=== PATIENT | female | born 1995 | race Two or more races ===

== ENCOUNTER 2024-06-28 16:12 | Emergency (ER) | payer MEDICAID, SELFPAY ==
[2024-06-28 16:13] VITALS: BMI 25.0
[2024-06-28 16:48] VITALS: BP 111/75; PULSE 74; RESP 20; TEMP 36.5; O2SAT 100
--- NOTE | 2024-06-28 17:44 | PD.EDRME ---
Rapid Medical Screening Exam RME Arrival date/time: 06/28/24 16:12 21-year-old female past medical history of gallstones presents department complaining of abdominal pain. Chief Complaint: Abdominal Pain Time Seen by Provider: 06/28/24 17:41 Vital signs: Vital Signs Temperature 97.7 F 06/28/24 16:48 Pulse Rate 74 06/28/24 16:48 Respiratory Rate 20 06/28/24 16:48 Blood Pressure 111/75 06/28/24 16:48 Pulse Oximetry (%) 100 06/28/24 16:48 Oxygen Delivery Method Room Air 06/28/24 16:48 Vital signs reviewed by provider: Yes
--- NOTE | 2024-06-28 17:47 | PD.EDADULT ---
ED General RME/HPI General Chief complaint: Abdominal Pain Stated complaint: HAVING A GALLSTONE ATTACK VOMITING TODAY Time Seen by Provider: 06/28/24 17:41 Arrival date/time: 06/28/24 16:12 CC: Right upper quadrant abdominal pain HPI ongoing for the past 2-1/2 hours. Patient has a history of known gallstones delivered her infant greater than 30 days ago. Does not breast-feed, has nausea without any vomiting. Pain is an 8 to a 10 on a 10 scale. Currently patient denies fever headache. States the pain radiates up into the left shoulder. RME / HPI RME / HPI narrative: 06/28/24 16:12 21-year-old female past medical history of gallstones presents department complaining of abdominal pain. Related Data Home Medications ?Medication ?Instructions ?Recorded ?Confirmed prenat.vits,bre,[id number] 1 tab PO DAILY 02/11/24 02/11/24 Previous Rx's ?Medication ?Instructions ?Recorded meloxicam 7.5 mg tablet 7.5 mg PO QDAY #10 tabs 06/28/24 ondansetron 4 mg disintegrating 4 mg PO Q8H #10 tabs 06/28/24 tablet Allergies Allergy/AdvReac Type Severity Reaction Status Date / Time Penicillins Allergy Severe Anaphylaxis Verified 06/28/24 16:15 Review of Systems Review of Systems Narrative Review of Systems: GEN: No fever, no chills, no weight loss EYES: No discharge, no visual changes, no pain HEENT: No ear pain, no congestion, no sore throat PULM: No shortness of breath, no cough, no congestion CV: No chest pain, no dyspnea on exertion, no palpitations GI: No nausea, no vomiting, no diarrhea, + pain, no constipation : No frequency, no urgency, no dysuria MUSC/SKEL: No joint pain, no back pain SKIN: No rash PSYCH: No hallucinations, no depression HEME/LYMPH: No easy bleeding or bruising tendencies NEURO: No weakness, no headache Past Medical History Past Medical History NEUROLOGIC: Negative Neurological Disorders or Seizures CARDIAC: Positive Cardiac Disorders; Negative Congestive Heart Failure RESPIRATORY: Positive Asthma; Negative Chronic Obstructive Pulmonary Disease (COPD) GASTROINTESTINAL: Positive Gall Bladder Disease (Gallstones); Negative Gastrointestinal Disorders GENITOURINARY: Positive Genitourinary Disorders; Negative Renal Disease MUSCULOSKELETAL: Negative Musculoskeletal Disorders ENDOCRINE: Negative Endocrine Disorders, Diabetes Mellitus Type 1 or Diabetes Mellitus Type 2 HEMATOLOGIC: Negative Blood Disorders OTHER HISTORY: Negative Hospitalization, Falls or Anesthesia Reactions Surgical History SURGICAL: Positive Oral Surgery Social History SMOKING STATUS: Never smoker SUBSTANCE USE: does not use ED Exam Narrative Physical exam: [General: In moderate discomfort but not in any acute distress Head normocephalic HEENT: Eyes pupils are PERRLA EOMs are intact all other subsystems of HEENT are within acceptable limits Neck is supple nontender Chest equal chest rise nontender to palpation Respiratory: Clear to auscultation no wheezes crackles or rubs CV: Rate rhythm is regular no murmurs rubs or clicks Abdomen: Reflexive guarding with palpation of the right upper quadrant and epigastric no left upper quadrant or lower quadrant abdominal pain with palpation. Back: No CVA tenderness no spinous process tenderness from cervical spine thoracic and lumbar spine Skin: Intact no petechiae rash induration ulceration or crepitus Extremities: Moving all extremity against resistance cap refill less than 2 seconds neurosensory intact Neuro: Awake alert oriented x3 Glascow coma 15 no focal deficits] Course Quality Measures none Orders Category Date Time Status US gall bladder Stat Exams 06/28/24 17:49 Completed CBC Stat Lab 06/28/24 18:00 Completed CMP [Comprehensive Metabolic Panel] Stat Lab 06/28/24 18:00 Completed HCG,Qualitative Serum Stat Lab 06/28/24 18:00 Completed Lipase Stat Lab 06/28/24 18:00 Completed Lipid Panel Stat Lab 06/28/24 18:00 Completed Urinalysis, C/S if Indicated Stat Lab 06/28/24 17:53 Completed Ketorolac Inj [Toradol Inj] Med 06/28/24 17:43 Discontinued 30 mg IM X1 ONE oxyCODONE/APAP 5/325 [Percocet 5/325] Med 06/28/24 18:46 Discontinued 1 tab PO X1 ONE Vital Signs Vital signs: Vital Signs Temperature 97.7 F 06/28/24 16:48 Pulse Rate 74 06/28/24 16:48 Respiratory Rate 20 06/28/24 16:48 Blood Pressure 111/75 06/28/24 16:48 Pulse Oximetry (%) 100 06/28/24 16:48 Oxygen Delivery Method Room Air 06/28/24 16:48 [facility] Patient data External records reviewed:: [facility] previous records Clinical information provided by:: patient Social determinants that could affect healthcare access:: none Patient has the following chronic illnesses:: Cholelithiasis How is presenting disease/condition affected by chronic disease/condition?: exacerbated by Evaluation data The following diagnostics were reviewed and interpreted by me:: lab results and radiology exam(s) Lab and/or radiology exams considered but not ordered:: CBC shows no leukocytosis anemia thrombocytopenia CMP shows no acute electrolyte imbalances renal impairment there is a mild elevation in ALT AST, but no T. bili elevation. Lipase is 53 Urine is negative for urinary tract infection Interpretation Summary: Cholelithiasis without cholecystitis Medications Medications considered but not ordered:: None Medication administrations:: Medication Administration History Discontinued Medications Ketorolac Tromethamine (Ketorolac Inj 60 Mg/2 Ml Vial) 30 mg IM X1 ONE Stop: 06/28/24 17:44 Last Admin: 06/28/24 18:17 Dose: 30 mg Documented By: [facility] Comments: scanner didn't work Oxycodone/Acetaminophen (Oxycodone/Apap 5/325 Tablet) 1 tab PO X1 ONE Stop: 06/28/24 18:47 Last Admin: 06/28/24 18:52 Dose: 1 tab Documented By: [facility] None Consultations Consultation(s) initiated? (list below): No Diagnosis Differential Diagnosis ED Complaint MDM: Cholelithiasis cholecystitis choledocholithiasis Most likely diagnosis given after review of the tests above:: Cholelithiasis Admission Indicated Admission indicated?: not indicated Explain why admission is indicated or not indicated:: Stable for outpatient follow-up Admission Request Was there a request for admission?: No Disposition Plan Disposition Plan: Discharge Discharge Attestation Discharge Attestation: The patient and all family members were given an opportunity to ask questions and understood the discharge instructions. Discharge instructions specifically effects, indications for sooner follow up or return to the emergency department, and the expected course of current diagnosis. Patient condition: Stable Medical Decision Making Differential Diagnosis Differential Diagnosis: Cholelithiasis cholecystitis choledocholithiasis Lab Data 06/28/24 18:00 06/28/24 18:00 Labs: Lab Results 06/28/24 06/28/24 Range/Units 17:53 18:00 WBC 13.1 H (3.6-11.0) Thou/mm3 RBC 4.42 (4.00-5.20) Miln/mm3 Hgb 13.1 (12.0-16.0) g/dL Hct 37.5 (36.0-46.0) % MCV 85 (80-100) fL MCH 29.6 (25.0-35.0) pg MCHC 34.9 (31.0-37.0) g/dl RDW Std Deviation 38.5 (36.4-46.3) fL Plt Count 262 (140-440) Thou/mm3 Neut % (Auto) 82 H (37-80) % Lymph % (Auto) 12 (10-50) % [place] % (Auto) 5 (0-12) % Eos % (Auto) 0 (0-10) % Baso % (Auto) 0 (0-2.5) % Neut # (Auto) 10.8 H (1.8-7.7) Thou/mm3 Lymph # (Auto) 1.5 (1.0-4.8) Thou/mm3 [place] # (Auto) 0.7 (0.0-0.8) Thou/mm3 Eos # (Auto) 0.0 (0.0-0.5) Thou/mm3 Baso # (Auto) 0.0 (0.0-0.2) Thou/mm3 Immature Gran # (Auto) 0.04 H (0.00-0.00) Thou/mm3 Absolute Nucleated RBC 0.00 (0.00-0.00) Thou/mm3 Immature Gran % 0 (0-0) % Nucleated RBC % 0 (0) /100 WBC Sodium 140 (136-145) mMol/L Potassium 3.6 (3.4-5.1) mMol/L Chloride 105 (98-107) mMol/L Carbon Dioxide 25.6 (20.0-31.0) mMol/L Anion Gap 9 (7-16) BUN 17 (9-23) mg/dL Creatinine 0.7 (0.6-1.3) mg/dL Estim Creat Clear Calc 107.7 (>60) mL/min eGFR > 60 (60 - ) See Note BUN/Creatinine Ratio 24 H (12-20) Ratio Glucose 119 H (74-106) mg/dL Calculated Osmolality 281 (275-295) Calcium 10.4 (8.3-10.6) mg/dL Corrected Calcium 10.4 H (8.5-10.1) mg/dL Total Bilirubin 0.7 (0.3-1.2) mg/dL AST 233 H (0-34) U/L ALT 160 H (10-49) U/L Alkaline Phosphatase 114 (46-116) U/L Total Protein 7.6 (5.7-8.2) gm/dL Albumin 4.9 (3.5-5.0) gm/dL Globulin 2.7 (2.3-3.5) gm/dL Albumin/Globulin Ratio 1.8 (1.2-2.2) Triglycerides 81 (30-150) mg/dL Cholesterol 162 (132-200) mg/dL LDL Cholesterol, Calc 83 (0-130) mg/dL HDL Cholesterol 63 H (40-60) mg/dL Cholesterol/HDL Ratio 2.6 L (3.7-5.6) RATIO Lipase 58 H (12-53) U/L HCG, Qual Negative Ur Collection Type Clean Catch Urine Color Yellow (Lt Yel-Yel) Urine Clarity Clear (Clear/Hazy) Urine pH 8.5 H (5.0-7.0) Ur Specific [place] 1.032 (1.001-1.035) Urine Protein 1+ A (Neg - Trace) Urine Glucose (UA) Negative (Negative) Urine Ketones Negative (Negative) Urine Blood Negative (Negative) Urine Nitrite Negative (Negative) Urine Bilirubin Negative (Negative) Urine Urobilinogen (Auto) 2.0 (0.0-1.0) mg/dL Ur Leukocyte Esterase Negative (Negative) Urine RBC 5 H (0-3) /hpf Urine WBC 4 (0-5) /hpf Ur Squamous Epith Cells 9 H (0-5) /hpf Urine Bacteria None (None) Ur Culture Indicated? Not Indicated Discharge Plan Plan Patient Disposition: HOME (Self Care) Patient condition on transfer: Stable Prescriptions/Referrals Prescriptions/Med Rec: New ondansetron 4 mg tablet,disintegrating 4 mg PO Q8H Qty: 10 0RF meloxicam 7.5 mg tablet 7.5 mg PO QDAY Qty: 10 0RF No Action Vitamin Tablet 1 tab PO DAILY Referrals: Mauricio Shafer MD [Primary Care Provider] - In 1 week Problem List Clinical Impression: Cholelithiasis Patient/Caregiver Discharge Instructions Other Activity Instructions:: Stick to a bland diet, take the medications as needed for pain if there is worsening of symptoms spite of these interventions follow-up with your primary care provider. Education Materials: Treating Gallstones, ED Diet, [place] (Adult) Print Language: Urdu Stand Alone Forms: Yvonne Award Info., Work/School Release, Patient Portal Info Letter PA/FORESTRY CONTRACTOR Supervising Physician PA/FORESTRY CONTRACTOR Supervising Physician: Ellis Fabian ENP
--- NOTE | 2024-06-28 17:49 | XR_ITS ---
Examination: Abdomen sonogram, Limited Date and time of exam: June 28, 2024 1803 hrs. Indications: Right upper abdominal pain with vomiting beginning 2 hours ago Technique: Real-time goodson scale transabdominal sonographic images of the upper abdomen obtained. Findings: Multiple gallstones Gallbladder wall 0.3 cm no edema Common bile duct 0.2 cm Pancreatic head 2.1 cm Liver 16.7 cm smooth contour no focal liver lesions Normal hepatopedal portal venous flow Patent IVC Impression: Cholelithiasis Negative for cholecystitis Mild hepatomegaly
[2024-06-28 18:10] LABS: Collection Type, Urine Clean Catch
[2024-06-28 18:12] LABS: Basophils % (Auto) 0 % (0-2.5); Eosinophils % (Auto) 0 % (0-10); Hematocrit 37.5 % (36.0-46.0); Hemoglobin 13.1 g/dL (12.0-16.0); Immature Granulocytes % (Auto) 0 % (0-0); Immature Granulocytes Auto 0.04 Thou/mm3 (0.00-0.00); Lymphocytes # (Auto) 1.5 Thou/mm3 (1.0-4.8); Lymphocytes % (Auto) 12 % (10-50); Mean Corpuscular HGB Conc 34.9 g/dl (31.0-37.0); Mean Corpuscular Hemoglobin 29.6 pg (25.0-35.0); Mean Corpuscular Volume 85 fL (80-100); Monocytes # (Auto) 0.7 Thou/mm3 (0.0-0.8); Monocytes % (Auto) 5 % (0-12); Neutrophils # (Auto) 10.8 Thou/mm3 (1.8-7.7); Neutrophils % (Auto) 82 % (37-80); Nucleated Red Blood Cell % 0 /100 WBC (0); Platelet Count 262 Thou/mm3 (140-440); RDW Standard Deviation 38.5 fL (36.4-46.3); Red Blood Count 4.42 Miln/mm3 (4.00-5.20); White Blood Count 13.1 Thou/mm3 (3.6-11.0)
[2024-06-28] MEDS: KETOROLAC INJ 60 MG/2 ML VIAL 30 MG IM (18:17)
[2024-06-28 18:34] LABS: HCG,Qualitative Serum Negative
[2024-06-28 18:38] LABS: Bilirubin,Urine Negative (Negative); Blood,Urine Negative (Negative); Clarity,Urine Clear (Clear/Hazy); Color,Urine Yellow (Lt Yel-Yel); Culture Indicated,Urine Not Indicated; Glucose, Urine Negative (Negative); Ketones,Urine Negative (Negative); Leukocyte Esterase,Urine Negative (Negative); Nitrite,Urine Negative (Negative); PH,Urine 8.5 (5.0-7.0); Protein,Urine 1+ (Neg - Trace); RBC,Urine 5 /hpf (0-3); Specific Gravity,Urine 1.032 (1.001-1.035); Squamous Epithelial Cell,Urine 9 /hpf (0-5); WBC,Urine 4 /hpf (0-5)
[2024-06-28 18:39] LABS: Alanine Aminotransferase 160 U/L (10-49); Albumin, Serum 4.9 gm/dL (3.5-5.0); Albumin/Globulin Ratio 1.8 (1.2-2.2); Alkaline Phosphatase 114 U/L (46-116); Anion Gap 9 (7-16); Aspartate Amino Transferase 233 U/L (0-34); BUN/Creatinine Ratio 24 Ratio (12-20); Bilirubin,Total 0.7 mg/dL (0.3-1.2); Blood Urea Nitrogen 17 mg/dL (9-23); Calcium 10.4 mg/dL (8.3-10.6); Calcium (Corrected) 10.4 mg/dL (8.5-10.1); Carbon Dioxide 25.6 mMol/L (20.0-31.0); Chloride 105 mMol/L (98-107); Creatinine (Component) 0.7 mg/dL (0.6-1.3); Estimated Creatinine Clearance 107.7 mL/min (>60); Globulin 2.7 gm/dL (2.3-3.5); Glucose 119 mg/dL (74-106); Lipase 58 U/L (12-53); Osmolality,Calculated 281 (275-295); Potassium 3.6 mMol/L (3.4-5.1); Sodium 140 mMol/L (136-145); Total Protein 7.6 gm/dL (5.7-8.2); eGFR > 60 See Note
[2024-06-28] MEDS: oxyCODONE/APAP 5/325 TABLET 1 TAB PO (18:52)
[2024-06-28 19:48] LABS: Cholesterol 162 mg/dL (132-200); HDL Cholesterol 63 mg/dL (40-60); LDL Cholesterol,Calculated 83 mg/dL (0-130); Triglycerides 81 mg/dL (30-150)
[2024-06-28 19:49] LABS: Cardiac Risk Estimate 2.6 RATIO (3.7-5.6)
[2024-06-28 19:57] VITALS: BP 116/72; PULSE 70; RESP 18; TEMP 36.7; O2SAT 98
== END 2024-06-28 19:58 | disposition home or self-care (01) ==
PROVIDERS: Emergency Provider Emergency Medicine; PCP Internal Medicine
DX: K80.20 Calculus of gallbladder without cholecystitis without obstruction (principal)
CPT/HCPCS: 36415; 76705; 80053; 80061; 81001; 83690; 84703; 85025; 96372; 99284; J1885; A9270

== ENCOUNTER 2024-06-29 20:14 | Inpatient (IN) | payer MEDICAID, SELFPAY ==
[2024-06-29 20:15] VITALS: BMI 23.5
[2024-06-29 20:37] VITALS: BP 115/67; PULSE 75; RESP 22; TEMP 36.6; O2SAT 98
--- NOTE | 2024-06-29 20:54 | PD.EDRME ---
Rapid Medical Screening Exam RME Arrival date/time: 06/29/24 20:14 29-year-old female past medical history of gallstones presents emergency department complaining of epigastric pain since yesterday. Chief Complaint: Abdominal Pain Time Seen by Provider: 06/29/24 20:43 Vital signs: Vital Signs Temperature 98 F 06/29/24 20:37 Pulse Rate 75 06/29/24 20:37 Respiratory Rate 22 H 06/29/24 20:37 Blood Pressure 115/67 06/29/24 20:37 Pulse Oximetry (%) 98 06/29/24 20:37 Oxygen Delivery Method Room Air 06/29/24 20:37 Vital signs reviewed by provider: Yes
--- NOTE | 2024-06-29 20:58 | XR_ITS ---
Examination: Abdomen sonogram, Limited Date and time of exam: June 29, 2024 at 2110 hrs. Indications: Epigastric pain with nausea beginning 2 days ago Technique: Real-time goodson scale transabdominal sonographic images of the upper abdomen obtained. Findings: Multiple gallstones, the largest 21 mm Gallbladder sludge Gallbladder wall 0.2 cm Common bile duct 0.3 cm Pancreatic head 2.4 cm Liver 17.6 cm fatty infiltration smooth contour no focal liver lesions Normal hepatopedal portal venous flow Patent IVC Impression: Cholelithiasis, negative for cholecystitis Hepatomegaly fatty liver
[2024-06-29] MEDS: KETOROLAC INJ 60 MG/2 ML VIAL 30 MG IM (21:01)
[2024-06-29] MEDS: MG HYD/AL HYD/SIME (Maalox Reg) SUSP 30 ML UDC PO (21:02)
[2024-06-29 21:10] LABS: Basophils % (Auto) 0 % (0-2.5); Eosinophils % (Auto) 1 % (0-10); Hematocrit 39.1 % (36.0-46.0); Hemoglobin 13.3 g/dL (12.0-16.0); Immature Granulocytes % (Auto) 0 % (0-0); Lymphocytes # (Auto) 1.6 Thou/mm3 (1.0-4.8); Lymphocytes % (Auto) 29 % (10-50); Mean Corpuscular Hemoglobin 29.1 pg (25.0-35.0); Mean Corpuscular Volume 86 fL (80-100); Monocytes # (Auto) 0.3 Thou/mm3 (0.0-0.8); Monocytes % (Auto) 6 % (0-12); Neutrophils # (Auto) 3.6 Thou/mm3 (1.8-7.7); Neutrophils % (Auto) 64 % (37-80); Nucleated Red Blood Cell % 0 /100 WBC (0); Platelet Count 288 Thou/mm3 (140-440); RDW Standard Deviation 39.4 fL (36.4-46.3); Red Blood Count 4.57 Miln/mm3 (4.00-5.20); White Blood Count 5.6 Thou/mm3 (3.6-11.0)
[2024-06-29 21:25] LABS: Collection Type, Urine Clean Catch
[2024-06-29 21:32] LABS: Alanine Aminotransferase 344 U/L (10-49); Albumin/Globulin Ratio 1.8 (1.2-2.2); Alkaline Phosphatase 226 U/L (46-116); Anion Gap 8 (7-16); Aspartate Amino Transferase 324 U/L (0-34); BUN/Creatinine Ratio 16 Ratio (12-20); Bilirubin,Total 1.9 mg/dL (0.3-1.2); Blood Urea Nitrogen 13 mg/dL (9-23); Calcium 10.6 mg/dL (8.3-10.6); Calcium (Corrected) 10.6 mg/dL (8.5-10.1); Carbon Dioxide 26.2 mMol/L (20.0-31.0); Chloride 107 mMol/L (98-107); Creatinine (Component) 0.8 mg/dL (0.6-1.3); Estimated Creatinine Clearance 101.8 mL/min (>60); Globulin 2.8 gm/dL (2.3-3.5); Glucose 102 mg/dL (74-106); Lipase 50 U/L (12-53); Osmolality,Calculated 281 (275-295); Potassium 3.8 mMol/L (3.4-5.1); Sodium 141 mMol/L (136-145); Total Protein 7.8 gm/dL (5.7-8.2); eGFR > 60 See Note
[2024-06-29 21:35] LABS: Bilirubin,Urine Negative (Negative); Blood,Urine Negative (Negative); Clarity,Urine Clear (Clear/Hazy); Color,Urine Yellow (Lt Yel-Yel); Culture Indicated,Urine Not Indicated; Glucose, Urine Negative (Negative); Ketones,Urine Negative (Negative); Leukocyte Esterase,Urine Negative (Negative); Nitrite,Urine Negative (Negative); Protein,Urine Trace (Neg - Trace); RBC,Urine 2 /hpf (0-3); Specific Gravity,Urine 1.019 (1.001-1.035); Squamous Epithelial Cell,Urine 3 /hpf (0-5); WBC,Urine 4 /hpf (0-5)
[2024-06-29 21:52] LABS: HCG,Qualitative Serum Negative
--- NOTE | 2024-06-29 22:17 | EDNOTE_ITS ---
ED Abdominal Pain RME/HPI General Chief Complaint: Abdominal Pain Stated complaint: GALLBLADDER PAIN Time seen by provider: 06/29/24 20:43 Arrival date/time: 06/29/24 20:14 29-year-old female past medical history of gallstones and recently gave approximately 2 months ago presents emergency department complaining of epigastric pain since yesterday. Patient reports was seen in ER yesterday and discharged home. Patient reports pain has worsened which prompted return to emergency department. Source: patient and family Mode of arrival: ambulatory Limitations: no limitations RME / HPI RME / HPI narrative: 06/29/24 20:14 29-year-old female past medical history of gallstones presents emergency department complaining of epigastric pain since yesterday. Related Data Home Medications ?Medication ?Instructions ?Recorded ?Confirmed prenat.vits,bre,[id number] 1 tab PO DAILY 02/11/24 02/11/24 Previous Rx's ?Medication ?Instructions ?Recorded meloxicam 7.5 mg tablet 7.5 mg PO QDAY #10 tabs 06/28/24 ondansetron 4 mg disintegrating 4 mg PO Q8H #10 tabs 06/28/24 tablet Allergies Allergy/AdvReac Type Severity Reaction Status Date / Time Penicillins Allergy Severe Anaphylaxis Verified 06/29/24 20:15 Review of Systems Review of Systems Systems Reviewed: All systems reviewed, normal except as documented Constitutional Constitutional: Reports system reviewed and no additional complaints, except as documented, Denies body ache(s), Denies chills and Denies fever(s) Eyes Eyes: Reports system reviewed and no additional complaints, except as documented and Denies change in vision ENT Ears, Nose, Mouth, and Throat: Reports system reviewed and no additional complaints, except as documented, Denies disequilibrium, Denies dizziness, Denies sore throat and Denies vertigo Cardiovascular Cardiovascular: Reports system reviewed and no additional complaints, except as documented, Denies chest pain and Denies dyspnea Respiratory Respiratory: Reports system reviewed and no additional complaints, except as documented, Denies chest congestion, Denies cough and Denies dyspnea Gastrointestinal Gastrointestinal: Reports system reviewed and no additional complaints, except as documented, Reports abdominal pain, Denies nausea and Denies vomiting Musculoskeletal Musculoskeletal: Reports system reviewed and no additional complaints, except as documented, Denies abnormal gait and Denies arthralgias Integumentary/Breasts Skin/Breast: Reports system reviewed and no additional complaints, except as documented, Denies erythema, Denies rash and Denies wounds Neurologic Neurologic: Reports system reviewed and no additional complaints, except as documented, Denies abnormal gait, Denies disequilibrium, Denies dizziness and Denies vertigo Past Medical History Past Medical History NEUROLOGIC: Negative Neurological Disorders or Seizures CARDIAC: Positive Cardiac Disorders; Negative Congestive Heart Failure RESPIRATORY: Positive Asthma; Negative Chronic Obstructive Pulmonary Disease (COPD) GASTROINTESTINAL: Positive Gall Bladder Disease; Negative Gastrointestinal Disorders GENITOURINARY: Positive Genitourinary Disorders; Negative Renal Disease MUSCULOSKELETAL: Negative Musculoskeletal Disorders ENDOCRINE: Negative Endocrine Disorders, Diabetes Mellitus Type 1 or Diabetes Mellitus Type 2 HEMATOLOGIC: Negative Blood Disorders OTHER HISTORY: Negative Hospitalization, Falls or Anesthesia Reactions Surgical History SURGICAL: Positive Oral Surgery Social History SMOKING STATUS: Never smoker SUBSTANCE USE: does not use ED Exam General Limitations: Present no limitations General appearance: Present alert and in no apparent distress Head Head exam: Present atraumatic Eye Eye exam: Present normal appearance, PERRL and EOMI ENT ENT exam: Present normal exam, normal oropharynx and mucous membranes moist Neck Neck exam: Present normal inspection, full ROM and trachea midline Chest Chest inspection: Present normal inspection and symmetric chest wall rise Respiratory Respiratory exam: Present normal lung sounds bilaterally Cardiovascular Cardiovascular exam: Present regular rate, normal rhythm and normal heart sounds Abdominal Exam Abdominal exam: Present soft, tenderness and normal bowel sounds Abdominal tenderness: Present RUQ Extremities Exam Extremities exam: Present normal inspection and full ROM Back Exam Back exam: Present normal inspection and full ROM Neurological Exam Neurological exam: Present alert, oriented X3 and CN II-XII intact Psychiatric Psychiatric exam: Present normal affect and normal mood Skin Skin exam: Present warm, dry, intact and normal color Course Quality Measures none Orders Category Date Time Status COVID-19 Screening Questionnaire NOW Care 06/29/24 22:16 Ordered Decision to Admit X1 Care 06/29/24 22:16 Ordered Insert IV NOW Care 06/29/24 22:16 Ordered US gall bladder Stat Exams 06/29/24 20:58 Completed CBC Stat Lab 06/29/24 21:00 Completed CMP [Comprehensive Metabolic Panel] Stat Lab 06/29/24 21:00 Completed HCG,Qualitative Serum Stat Lab 06/29/24 21:00 Completed Lipase Stat Lab 06/29/24 21:00 Completed Urinalysis, C/S if Indicated Stat Lab 06/29/24 21:18 Completed Ketorolac Inj [Toradol Inj] Med 06/29/24 20:53 Discontinued 30 mg IM X1 ONE Morphine Inj Med 06/29/24 22:16 Once 4 mg IVP X1 ONE Ondansetron Inj [Zofran Inj] Med 06/29/24 22:16 Once 4 mg IV X1 ONE mg Hyd/Al Hyd/Mark Susp [Maalox Susp] Med 06/29/24 20:53 Discontinued 30 ml PO X1 ONE Vital Signs Vital signs: Vital Signs Temperature 98 F 06/29/24 20:37 Pulse Rate 75 06/29/24 20:37 Respiratory Rate 22 H 06/29/24 20:37 Blood Pressure 115/67 06/29/24 20:37 Pulse Oximetry (%) 98 06/29/24 20:37 Oxygen Delivery Method Room Air 06/29/24 20:37 98% room air within normal limits Abdominal Pain MDM MDM Narrative MDM Narrative:: 29-year-old female past medical history of gallstones and recently gave approximately 2 months ago presents emergency department complaining of epigastric pain since yesterday. Patient reports was seen in ER yesterday and discharged home. Patient reports pain has worsened which prompted return to emergency department. CBC was unremarkable for any leukocytosis. CMP remarkable for elevated LFTs which are trending upwards compared to yesterday's labs. Ultrasound gallbladder findings cholelithiasis negative for cholecystitis with common bile duct measuring 0.[address] Patrick on-call general surgeon consulted and agrees to admit patient. Patient stable at time of admission. Patient data External records reviewed:: [facility] previous records Clinical information provided by:: patient Social determinants that could affect healthcare access:: none Patient has the following chronic illnesses:: See chart How is presenting disease/condition affected by chronic disease/condition?: uneffected by Evaluation data The following diagnostics were reviewed and interpreted by me:: lab results and radiology exam(s) Lab and/or radiology exams considered but not ordered:: Ordered Interpretation Summary: Interpreted by me Medications / Prescriptions Medications or Prescriptions considered but not ordered:: Ordered Medication administrations:: Medication Administration History Discontinued Medications Al Hydrox/Mg Hydrox/Simethicone (Mg Hyd/Al Hyd/Mark (Maalox Reg) Susp 30 Ml Udc) 30 ml PO X1 ONE Stop: 06/29/24 20:54 Last Admin: 06/29/24 21:02 Dose: 30 ml Documented By: SF Ketorolac Tromethamine (Ketorolac Inj 60 Mg/2 Ml Vial) 30 mg IM X1 ONE Stop: 06/29/24 20:54 Last Admin: 06/29/24 21:01 Dose: 30 mg Documented By: SF Given Consultations Consultation(s) initiated? (list below): Yes Consultation #1 (Physician, Specialty, Details): Dr. Griffith Diagnosis Differential diagnosis abdominal pain: acute appendicitis, calculus of kidney, diverticulitis and pancreatitis Most likely diagnosis given after review of the tests above:: Cholelithiasis Admission Indicated Admission indicated?: indicated Admission Request Was there a request for admission?: Yes Admission Attestation Admission request attestation: Discussed case with [Dr. Griffith] from Hospitalist service regarding admission. Discussed patients ED course, exam findings, labs, and radiology results. Dr. Griffith [agrees] to accept the patient for admission. Disposition Plan Disposition Plan: Admit Discharge Plan Plan Patient Disposition: Admit Acute Care w/in Hospital Disposition Comment: Stable Prescriptions/Referrals Prescriptions/Med Rec: No Action Vitamin Tablet 1 tab PO DAILY ondansetron 4 mg tablet,disintegrating 4 mg PO Q8H Qty: 10 0RF meloxicam 7.5 mg tablet 7.5 mg PO QDAY Qty: 10 0RF Referrals: No Primary/Family,Physician [Primary Care Provider] - In 1 week Problem List Clinical Impression: Cholelithiasis Patient/Caregiver Discharge Instructions Print Language: Yoruba Stand Alone Forms: Yvonne Award Info., Patient Portal Info Letter PA/SEXTON HELPER Supervising Physician PA/SEXTON HELPER Supervising Physician: Dr. Fallon
[2024-06-29] MEDS: MORPHINE SULF INJ 10 MG/ML VIAL 4 MG IVP (22:33)
[2024-06-29] MEDS: ONDANSETRON INJ 2 MG/ML INJ 2 ML 4 MG IV (22:35)
[2024-06-29] MEDS: SODIUM CHLORIDE 0.9% 1000 ML 1,000 ML 125 ML IV (22:37)
[2024-06-29 23:29] VITALS: BMI 24.7
--- NOTE | 2024-06-29 23:58 | PC.NURSE ---
Pt came in from ER, alert and oriented, ambulatory stedy on her feet, no C/O of pain at this time. Significant others at bedside.
[2024-06-30] VITALS (15 sets, daily range): BP systolic 94–134; BP diastolic 52–88; PULSE 60–75; RESP 13–20; TEMP 36.1–36.8; O2SAT 95–100
--- NOTE | 2024-06-30 | XR_ITS ---
MRI abdomen, without contrast. MRCP Date and time of exam: June 30, 2024 at 10:11 AM Indications: 2 months, presenting to the emergency room yesterday with epigastric pain, gallbladder sonogram June 29, 2024 cholelithiasis Technique: Multiple axial and coronal images of the abdomen have been obtained with the Siemens 1.5T MRI scanner. Images obtained included T1 weighted transverse images, T2-weighted transverse images, T2-weighted transverse images fat-suppressed, T2 weighted haste fat suppressed transverse images, T1 weighted images, in and out of phase images, T2-weighted coronal images, breath hold, T2 weighted haze coronal images as well as T2 weighted coronal thick slab images, MRCP. Findings: Mild intrahepatic biliary tract dilatation Multiple gallstones Gallbladder wall does not appear thickened Common bile duct 5 cm No common hepatic or common bile duct stones No peripancreatic edema Spleen is not enlarged No hydronephrosis Aorta normal size No ascites Impression: Cholelithiasis, negative for cholecystitis No common hepatic or common bile duct stones Negative for pancreatitis
--- NOTE | 2024-06-30 04:00 | PC.NURSE ---
Pt no C/o of pain at this time.
[2024-06-30 05:56] LABS: Basophils % (Auto) 0 % (0-2.5); Eosinophils # (Auto) 0.1 Thou/mm3 (0.0-0.5); Eosinophils % (Auto) 2 % (0-10); Hematocrit 33.8 % (36.0-46.0); Hemoglobin 11.3 g/dL (12.0-16.0); Immature Granulocytes % (Auto) 0 % (0-0); Immature Granulocytes Auto 0.01 Thou/mm3 (0.00-0.00); Lymphocytes # (Auto) 1.6 Thou/mm3 (1.0-4.8); Lymphocytes % (Auto) 41 % (10-50); Mean Corpuscular HGB Conc 33.4 g/dl (31.0-37.0); Mean Corpuscular Volume 87 fL (80-100); Monocytes # (Auto) 0.4 Thou/mm3 (0.0-0.8); Monocytes % (Auto) 10 % (0-12); Neutrophils # (Auto) 1.8 Thou/mm3 (1.8-7.7); Neutrophils % (Auto) 47 % (37-80); Nucleated Red Blood Cell % 0 /100 WBC (0); Platelet Count 152 Thou/mm3 (140-440); RDW Standard Deviation 40.2 fL (36.4-46.3); White Blood Count 3.9 Thou/mm3 (3.6-11.0)
[2024-06-30 06:15] LABS: Partial Thromboplastin Time 20.8 Seconds (22.0-36.0); Prothrombin Time 11.3 Seconds (9.0-12.2)
[2024-06-30 06:56] LABS: Alanine Aminotransferase 434 U/L (10-49); Albumin, Serum 4.4 gm/dL (3.5-5.0); Albumin/Globulin Ratio 1.9 (1.2-2.2); Alkaline Phosphatase 219 U/L (46-116); Anion Gap 9 (7-16); Aspartate Amino Transferase 421 U/L (0-34); BUN/Creatinine Ratio 27 Ratio (12-20); Bilirubin,Direct 1.3 mg/dL (0.0-0.3); Bilirubin,Total 2.1 mg/dL (0.3-1.2); Blood Urea Nitrogen 16 mg/dL (9-23); Carbon Dioxide 22.2 mMol/L (20.0-31.0); Chloride 109 mMol/L (98-107); Creatinine (Component) 0.6 mg/dL (0.6-1.3); Estimated Creatinine Clearance 135.7 mL/min (>60); Globulin 2.3 gm/dL (2.3-3.5); Glucose 90 mg/dL (74-106); Osmolality,Calculated 280 (275-295); Potassium 3.7 mMol/L (3.4-5.1); Sodium 140 mMol/L (136-145); Total Protein 6.7 gm/dL (5.7-8.2); eGFR > 60 See Note
--- NOTE | 2024-06-30 10:24 | PD.SURHP ---
HPI Date of Admission 06/29/24 22:18 HPI 29F presenting with abdominal pain. Patient reports pain began yesterday afternoon after eating, with severe in the epigastrium associated with nausea. Patient has had several episodes in the last few months with findings of symptomatic cholelithiasis. This time in ER pain was persistent PMH: None PSH: D&C Meds: None Allergies: Penicillin causes anaphylaxis Social history: Non-smoker Review of Systems Review of Systems ROS Unobtainable: All systems reviewed & no additional complaints except as documented ENT Ears, Nose, Mouth, and Throat: Denies disequilibrium, Denies dizziness and Denies vertigo Musculoskeletal Musculoskeletal: Denies abnormal gait Neurologic Neurologic: Reports system reviewed and no additional complaints, except as documented, Denies abnormal gait, Denies disequilibrium, Denies dizziness and Denies vertigo Meds Home Medications and Allergies Home Medications ?Medication ?Instructions ?Recorded ?Confirmed ?Type prenat.vits,bre,yxa-vyar-gxcwy 1 tab PO DAILY 02/11/24 06/30/24 History Allergies Allergy/AdvReac Type Severity Reaction Status Date / Time Penicillins Allergy Severe Anaphylaxis Verified 06/29/24 20:15 Exam Vital Signs Temp Pulse Resp BP Pulse Ox O2 Del Method 97.8 F 65 20 94/58 L 95 Room Air 06/30/24 08:00 06/30/24 08:00 06/30/24 08:00 06/30/24 08:00 06/30/24 08:00 06/30/24 08:00 Constitutional Constitutional: no acute distress Routine Respiratory Exam Respiratory: Present no resp distress Routine Abdominal Exam Abdominal: Present soft; Absent tenderness or distended Results Results: Laboratory Laboratory results: results reviewed Results: Imaging US - abdomen: report reviewed Assessment & Plan Plan 29F presenting with signs and symptoms of symptomatic cholelithiasis/early acute cholecystitis. Given patient's hyperbilirubinemia, explained that MRCP will first be obtained to assess for choledocholithiasis. If positive I will request transfer for ERCP, if negative we can proceed with cholecystectomy. I explained benefits/risks of surgery including need for conversion to open, bleeding, infection, injury to nearby structures/biliary leak requiring further procedures or surgery which would require transfer to higher level of care. Patient expressed understanding and agrees to proceed Quality Measures Quality Measures none
--- NOTE | 2024-06-30 15:20 | PC.SS ---
SS attempted to see patient, however, patient is currently in surgery. SS to follow up with initial assessment.
--- NOTE | 2024-06-30 15:53 | PD.SUROPNT ---
Date of Procedure 06/30/24 Pre Op Diagnosis Symptomatic cholelithiasis Post Op Diagnosis Same Procedure Laparoscopic cholecystectomy Findings Gallbladder with large stones Procedure Description After discussion of risks and benefits, patient was brought to the operating room, SCDs were placed and general anesthesia was induced. She received preoperative antibiotics and was prepped and draped in usual sterile fashion. After timeout a supraumbilical incision was made and the tissue was elevated with towel clamps. A Veress needle was placed through the incision and proper positioning was confirmed with a drop test. The abdomen was insufflated to 15 mmHg at which point the Veress needle was exchanged for a 5 mm camera using a Visiport technique. There were no signs of injury from the point of entry. 3 additional ports were placed under direct vision, one 12 mm at the epigastrium, one 5 mm right subcostal and one 5 mm right anterior axillary line. Patient was placed in reverse Trendelenburg with left side down. The fundus of the gallbladder was grasped retracted cephalad and the infundibulum was grasped and retracted laterally. Ultimately the critical view of safety was achieved using blunt dissection and the cystic duct and cystic artery were clipped and transected in the usual fashion. The gallbladder was removed from the gallbladder bed using electrocautery and hemostasis of the gallbladder bed was ensured with electrocautery. The specimen was removed in an Endo Catch bag via the epigastric port and the epigastric fascia was closed with 2-0 Vicryl sutures using a Patrick-Rosendo. Again the gallbladder bed was examined and no signs of bleeding were observed. Pneumoperitoneum was released and ports were removed under direct vision. Incisions were irrigated and infiltrated with half percent Marcaine for a total of 20 cc. Incisions were closed with 4 Monocryl and reinforced with Dermabond. Patient was extubated and brought to PACU in stable condition Pathology / specimen Other (Gallbladder) Estimated Blood Loss 50 Surgeon Pamela Griffith MD Surgical Staff Operation Date: 06/30/24 15:15 Case Staff Anesthesiologist: Jamshid Bradley RN First Assistant: Carolina Luciano
--- NOTE | 2024-06-30 15:56 | PD.SURDS ---
Planned Discharge Date 06/30/24 DS: Providers Provider Date of admission: 06/30/24 11:31 Primary care physician: Physician No Primary/Family Admitting Provider: Pamela Griffith MD Attending Provider on Admission: Pamela Griffith MD Attending Provider on DC: Pamela Griffith MD Discharging Provider: Pamela Griffith MD Diagnosis Discharge Diagnosis (1) Cholelithiasis: Status: Acute Problem List Completed Was Problem List Reviewed/Reconciled?: Yes Hospital Course Patient presented with signs and symptoms of recurrent symptomatic cholelithiasis. She underwent MRCP to evaluate direct hyperbilirubinemia which was negative for choledocholithiasis. On 06/30 she underwent laparoscopic cholecystectomy which proceeded without complication Exam Vital Signs Temp Pulse Resp BP Pulse Ox O2 Del Method 98.3 F 60 20 98/66 99 Room Air 06/30/24 12:00 06/30/24 12:00 06/30/24 12:00 06/30/24 12:00 06/30/24 12:00 06/30/24 12:00 Constitutional Constitutional: no acute distress Routine Respiratory Exam Respiratory: Present no resp distress Discharge Plan Plan Patient Disposition: HOME (Self Care) Disposition Comment: MED SURG Patient condition on transfer: Stable Prescriptions/Referrals Prescriptions/Med Rec: New oxycodone-acetaminophen [Percocet] 5-325 mg tablet 1 tab PO Q6H MDD 6 tabs PRN (Reason: pain) Qty: 10 0RF No Action Vitamin Tablet 1 tab PO DAILY ondansetron 4 mg tablet,disintegrating 4 mg PO Q8H Qty: 10 0RF meloxicam 7.5 mg tablet 7.5 mg PO QDAY Qty: 10 0RF Referrals: Pamela Griffith MD [Physician] - (You will receive a phone call to confirm a follow-up appointment with me in 2 weeks) No Primary/Family,Physician [Primary Care Provider] - Patient/Caregiver Discharge Instructions Other Discharge Activity Instructions:: Avoid lifting objects greater than 10 pounds for 6 weeks You may resume showering in 2 days, on 07/02 Avoid bathing or swimming for 2 weeks Your stitches have skin glue on them which will fall off on its own and does not need to be replaced. Your stitches will not need to be removed During the surgery we fill your air with abdomen in order to see the structures. We try to remove it all at the end but some may linger, causing pain that refers to the shoulder as well as pain with taking deep breaths. It can take days to weeks for the air to fully resorb. Being out of bed and walking are helpful for the air to resorb If you develop worsening pain, nausea, fever or jaundice please seek care in ER You may take ibuprofen OR naproxen and Tylenol as needed for pain, in addition to Percocet if needed for severe pain. Because Percocet contains Tylenol please take care not to exceed 4 g of Tylenol per day Education Materials: Preventing Surgical Site Infections Print Language: Luxembourgish Stand Alone Forms: [employer] Award Info., Patient Portal Info Letter Discharge Order Discharge Orders: Discharge (Routine); Ordered 06/30/24 Ordered By: Pamela Griffith Results Results: Laboratory Laboratory results: results reviewed Results: Imaging Imaging narrative: MRCP reviewed CT scan - abdomen: report reviewed and image reviewed Procedures Procedure Date 06/30/24 Procedures Laparoscopic cholecystectomy
--- NOTE | 2024-06-30 15:58 | SUR.PHASEI ---
1559 Patient arrived to recovery resting comfortably in [facility], on oxygen 6L via oxy mask, oral airway removed upon arrival, drowsy and able to follow verbal commands, breathing unlabored, vital signs stable, denies pain, dressing intact to abdomen; dermabond x4 port, no bleeding noted, lung sounds clear upon auscultation, bilateral radial pulses present when palpated, report received from Dr. Bradley and Janice RAMESH
[2024-06-30] MEDS: fentaNYL CIT INJ 50 mCg/ML AMP 2ML 25 MCG IV (16:07)
[2024-06-30] MEDS: ACETAMINOPHEN IVPB 1,000 MG/100 ML VIAL 250 MG IV ×2 (16:09→20:01)
--- NOTE | 2024-06-30 16:10 | SUR.PHASEI ---
patient eating ice chips tolerating well
[2024-06-30] MEDS: MORPHINE SULF INJ 10 MG/ML VIAL 2 MG IVP (16:22)
--- NOTE | 2024-06-30 16:45 | SUR.PHASEI ---
1640 Report given to Мария RAMESH, patient meets discharge criteria from recovery, awake and alert, drinking 7up; tolerating well, denies nausea, dressing intact; no bleeding noted, per patient her pain is tolerable. 1645 Patient transported via gurney to room 355 without incident
[2024-06-30] MEDS: KETOROLAC INJ 30 MG/ML VIAL 15 MG IVP (17:39)
--- NOTE | 2024-06-30 19:14 | PC.NURSE ---
Dr wells notified of pt request for an overnight stay as her pain is still high 7/10 even after pain medication, along with nausea and dizziness. Dr wells states it is okay for her to stay.
[2024-06-30] MEDS: MORPHINE SULF INJ 10 MG/ML VIAL 4 MG IVP (20:01)
[2024-06-30] MEDS: ONDANSETRON INJ 2 MG/ML INJ 2 ML 4 MG IV (20:02)
[2024-07-01] MEDS: ACETAMINOPHEN IVPB 1,000 MG/100 ML VIAL 250 MG IV (02:27)
[2024-07-01 04:00] VITALS: BP 126/73; PULSE 72; RESP 18; TEMP 36.2; O2SAT 98
[2024-07-01 07:53] VITALS: PULSE 72; RESP 16; O2SAT 98
[2024-07-01] MEDS: MORPHINE SULF INJ 10 MG/ML VIAL 4 MG IVP (07:57)
[2024-07-01 08:00] VITALS: BP 109/64; PULSE 60; RESP 15; TEMP 36.2; O2SAT 98
--- NOTE | 2024-07-01 10:08 | PC.SS ---
Regino Oconnell is 29-year-old female admitted to Med-Surg for Cholecystitis. SS conducted bedside contact with the patient to complete initial assessment and to discuss discharge planning. Patient confirmed demographic information. Patient identifies her mother Sabina Rocha [phone] as her surrogate decision maker. Patient resides at home with her kids. Pt states she is able to complete all ADL?s independently, no need for any source of DME. Pts PCP is Dr. Antonietta Herrera at [facility] and her pharmacy of choice is [facility] on [address] in [place]. DC options discussed pt wishes to return home. Pts fam will provide transportation upon DC. No further intervention required at this time, case management social worker would be available to address any further concerns. DC Plan: Home Contact: Sabina Rocha [phone] PCP: Dr. Antonietta Herrera at [facility]
[2024-07-01 12:00] VITALS: BP 106/61; PULSE 65; RESP 17; TEMP 36.8; O2SAT 95
[2024-07-01] MEDS: oxyCODONE/APAP 5/325 TABLET 1 TAB PO (12:59)
== END 2024-07-01 16:15 | disposition home or self-care (01) | DRG 263 ==
LOC: SERX 22:22 → SERHOLD 23:03 → S3NX 06-30 06:03 → SERHOLD 06-30 11:33
PROVIDERS: Admitting Provider Surgery; Emergency Provider Emergency Medicine; Visit Provider Surgery
PROC: 0FT44ZZ Resection of Gallbladder, Percutaneous Endoscopic Approach (ICD-10-PCS; CPT 47562; principal; 2024-06-30 15:00)
DX: K80.20 Calculus of gallbladder without cholecystitis without obstruction (principal); Z88.0 Allergy status to penicillin
CPT/HCPCS: 36415; 76705; 80053; 81001; 82248; 83690; 84703; 85025; 85610; 85730; 96372; 96374; 96375; 96376; 99285; A4217; A4649; G0378; J0131; J0736; J1100; J1885; J2250; J2270; J2405; J2704; J3010; J3490; J7030; S0077; S8037; 74181; A9270; J0737

== ENCOUNTER 2024-07-16 13:09 | Outpatient (AMB) | payer MEDICAID, SELFPAY ==
[2024-07-16 13:21] VITALS: BP 104/67; PULSE 66; RESP 18; TEMP 36.5; O2SAT 98; BMI 22.6
--- NOTE | 2024-07-16 13:21 | PD.GSCLVISIT ---
Vital Signs - [facility] 07/16/24 13:21 Height 1.7 m Height Method Stated Weight 65.402 kg Weight Measurement Method Standing Scale BMI 22.6 BP 104/67 Blood Pressure Source Automatic Cuff Blood Pressure Location Left Upper Arm Position Sitting Respiration 18 Pulse 66 Pulse Source Monitor Temp 97.7 F Temp Source Temporal Artery Scan Pulse Oximetry (%) 98 Oxygen Delivery Method Room Air Med/Allergies Allergies & Medications Allergies Penicillins Allergy (Severe, Verified 07/16/24 13:22) Anaphylaxis Medication Reconciliation prenat.vits,bre,cnj-dwmj-wartv 1 tab PO DAILY 02/11/24 [History Confirmed 07/16/24] meloxicam 7.5 mg tablet 7.5 mg PO QDAY #10 tabs 06/28/24 [Rx Confirmed 07/16/24] ondansetron 4 mg disintegrating tablet 4 mg PO Q8H #10 tabs 06/28/24 [Rx Confirmed 07/16/24] oxycodone-acetaminophen 5 mg-325 mg tablet (Percocet) 1 tab PO Q6H PRN pain #10 tabs 06/30/24 [Rx Confirmed 07/16/24] MA Intake Visit Data Collection New Patient or Established: Established Patient (seen at [facility] within 3 years) Seen by Clinical Staff ONLY (RN/MA): No Reason for Visit:: FOLLOW UP Pain Present Currently: No Third Mate Required: No PCP or OBGYN visit in last 3 months: Yes Hx Now: No Do You Feel Safe at Home: Yes Authorities Contacted: N/A Smoking Status Smoking Status: Never smoker Immunization / Flu Flu Vaccine in the Last 12 Months: No Flu Vaccine Exclusion Criteria: No Exclusion Criteria Past Medical History Past Medical History NEUROLOGIC: Negative Neurological Disorders or Seizures CARDIAC: Positive Cardiac Disorders; Negative Congestive Heart Failure RESPIRATORY: Positive Asthma; Negative Chronic Obstructive Pulmonary Disease (COPD) GASTROINTESTINAL: Positive Gall Bladder Disease; Negative Gastrointestinal Disorders GENITOURINARY: Positive Genitourinary Disorders; Negative Renal Disease ENDOCRINE: Negative Endocrine Disorders, Diabetes Mellitus Type 1 or Diabetes Mellitus Type 2 HEMATOLOGIC: Negative Blood Disorders OTHER HISTORY: Negative Hospitalization, Falls, Blood Transfusions or Anesthesia Reactions Surgical History SURGICAL: Positive Oral Surgery Social History SMOKING STATUS: Smoking status: Never smoker ALCOHOL: Alcohol Intake: Never HOUSING: Housing: House LIVES WITH: Lives With: Children and Family HPI HPI Narrative 29F s/p laparoscopic cholecystectomy 06/30 here for planned follow up. Pt reports feeling well overall, she has some discomfort at the epigastric incision but is not needing any pain meds. She had diarrhea at first but that has since improved, and she denies any nausea/vomiting or fever ROS Review of Systems Systems Reviewed: All systems reviewed, normal except as documented Objective/Exam General General Appearance: alert, cooperative and well groomed Resp Respiratory exam: Absent respiratory distress Abdominal Abdominal exam: Present soft and incision (c/d/i, no erythema, no fluctuance or tenderness); Absent distention or tenderness Results Pathology of gallbladder: chronic cholecystitis with cholelithiasis Assessment & Plan Diagnosis / Problem List (1) Chronic cholecystitis: Status: Acute Assessment & Plan: 29F s/p lap darrick 06/30, recovering well. I advised pt to avoid strenuous activity for 6 weeks postop Plan: Follow up as needed Office Procedures GNS Level of Care Nursing/Assessment Patient Status: Established Patient Nursing Assessment/Reassesment: Medication Reconciliation, Update PMH in EMR and Vital Signs Coordination of Care: Complex Care and Chronic Disease 1-5, Consent,records obtained, informed consent, Education Simp Pt/Fam, Results/Orders obtained and Staff clarify orders Established Patient Charge Established Patient Point Assignment: 90 Established Patient Point Charge: EP Level 3 (80-115) Patient Portal Questionaires Social History Living Situation History Housing: House Tobacco History Smoking Status: Never smoker Alcohol History Alcohol Intake: Never Domestic Abuse History Do You Feel Safe at Home: Yes Review of Systems Report any current symptoms Only answer those that you have currently: Past Medical History Past Medical History Have you ever been diagnosed with any of the following: Neurological Problems Seizures: No Cardiology Problems Congestive Heart Failure: No Respiratory Problems Chronic Obstructive Pulmonary Disease (COPD): No Asthma: Yes Stomache/Intestinal Problems Gall Bladder Disease: Yes Genital/Urinary Problems Renal Disease: No Endocrine Problems Diabetes Mellitus Type 1: No Diabetes Mellitus Type 2: No Other Problems Hospitalization: No Falls: No Blood Transfusions: No Anesthesia Reactions: No
== END 2024-07-16 13:23 | disposition home or self-care (01) ==
LOC: HODSRG 13:09
PROVIDERS: Supervising Provider Surgery; Visit Provider Surgery
DX: Z48.815 Encounter for surgical aftercare following surgery on the digestive system (principal)
CPT/HCPCS: 99213; G0463